=== PATIENT | female | born 1975 | race Caucasian/White ===

== ENCOUNTER 2020-03-20 15:09 | Emergency (ER) | payer OTHER ==
[~2020-03-20] VITALS: Ht 165.1 cm; Wt 104.8 kg
[2020-03-20] MEDS ORDERED: PRAZOSIN HCL2 MG PO (20:30)
[2020-03-20] MEDS ORDERED: PERPHENAZINE2 MG PO (20:30)
[2020-03-20] MEDS ORDERED: FLUTICASONE PRO16 GM NAS (20:30)
[2020-03-20] MEDS ORDERED: VENLAFAXINE HC150 MG PO (20:31)
[2020-03-20] MEDS ORDERED: LAMOTRIGINE100 MG PO (20:31)
== END 2020-03-20 15:47 | disposition home or self-care (01) ==
LOC: ED 15:09
DX: M79.671 Pain in right foot (principal)

== ENCOUNTER 2020-03-20 19:44 | Emergency (ER) | payer OTHER ==
[~2020-03-20] VITALS: Ht 165.1 cm; Wt 104.8 kg
--- OUTSIDE RECORDS SUMMARY | 2020-03-20 19:46 | XMS ---
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 Roney has no Care Guidelines for this patient. Peter VISIT COUNT (12 MO.) [facility] NOTE: Visits indicate total known visits. ED/C VISIT TRACKING (12 MO.) 03/20/2020 19:45 [facility]: Emergency COMPLAINT: - CHEST PAIN 03/20/2020 15:09 [facility] [place] TYPE: Emergency COMPLAINT: - R FOOT PAIN INPATIENT VISIT TRACKING (12 MO.) No inpatient visits to display in this time frame [email or web address]
[2020-03-20] MEDS ORDERED: FLUTICASONE PRO16 GM NAS (20:30)
[2020-03-20] MEDS ORDERED: PERPHENAZINE2 MG PO (20:30)
[2020-03-20] MEDS ORDERED: PRAZOSIN HCL2 MG PO (20:30)
[2020-03-20] MEDS ORDERED: VENLAFAXINE HC150 MG PO (20:31)
[2020-03-20] MEDS ORDERED: LAMOTRIGINE100 MG PO (20:31)
--- NOTE | 2020-03-20 21:24 | EKG ---
[facility] [address] [place], [place] [address] Signed Sinus tachycardia Otherwise normal ECG No previous ECGs available Confirmed by RODRI BRITT MD ([id number] on 03/20/2020 9:24:09 PM Electronically Signed By: RODRI BRITT MD 03/20/202123 PATIENT NAME: JULIUS RIDDLE Electrocardiogram DATE OF : 73 PHYSICIAN: RODRI BRITT MD REPORT #: [id number] REPORT IS CONFIDENTIAL AND NOT TO BE RELEASED WITHOUT AUTHORIZATION
== END 2020-03-20 23:35 | disposition home or self-care (01) ==
LOC: ED 19:44
DX: R07.9 Chest pain, unspecified (principal); F17.200 Nicotine dependence, unspecified, uncomplicated; Z88.0 Allergy status to penicillin; Z88.2 Allergy status to sulfonamides; Z79.899 Other long term (current) drug therapy
CPT/HCPCS: 71045; 80053; 83735; 84484; 85025; 85379; 93005; 93010; 96374; 96375; 99285-25; J1885; J2060; J7121

== ENCOUNTER 2020-10-03 12:23 | Emergency (ER) | payer OTHER ==
[~2020-10-03] VITALS: Ht 165.1 cm; Wt 104.8 kg
[~2020-10-03 12:23] MED LIST: FLUTICASONE PRO16 GM NAS; LAMOTRIGINE100 MG PO; PERPHENAZINE2 MG PO; PRAZOSIN HCL2 MG PO; VENLAFAXINE HC150 MG PO
--- OUTSIDE RECORDS SUMMARY | 2020-10-03 13:02 | XMS ---
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 Care History Medical/Surgical 03/22/2020 [facility] CONTACTED PATIENT- PATIENT HAS AN APT WITH PCP BETTY HAIRSTON TODAY 08/05 @ 10:30AM FOR ER FOLLOW UP. Peter VISIT COUNT (12 MO.) 3 [facility] TOTAL 3 NOTE: Visits indicate total known visits. ED/UCC VISIT TRACKING (12 MO.) 10/03/2020 12:24 [facility] [place] TYPE: Emergency COMPLAINT: - COVID ISSUE 03/20/2020 19:45 [facility] [place] TYPE: Emergency COMPLAINT: - CHEST PAIN DIAGNOSES: - Nicotine dependence, unspecified, uncomplicated - Other truck terminal manager (current) drug therapy - Allergy status to sulfonamides - Allergy status to penicillin - Allergy status to sulfonamides - Chest pain, unspecified 03/20/2020 15:09 [facility] [place] TYPE: Emergency COMPLAINT: - R FOOT PAIN DIAGNOSES: - Pain in right foot INPATIENT VISIT TRACKING (12 MO.) No inpatient visits to display in this time frame [id number]
== END 2020-10-03 13:38 | disposition home or self-care (01) ==
LOC: ED 12:23
DX: R06.02 Shortness of breath (principal); J06.9 Acute upper respiratory infection, unspecified; Z20.822 Contact with and (suspected) exposure to COVID-19; F17.200 Nicotine dependence, unspecified, uncomplicated; Z88.0 Allergy status to penicillin; Z88.2 Allergy status to sulfonamides; Z79.899 Other long term (current) drug therapy
CPT/HCPCS: 99284; C9803; U0003

== ENCOUNTER 2021-12-03 08:44 | Emergency (ER) | payer OTHER ==
[~2021-12-03] VITALS: Ht 165.1 cm; Wt 104.8 kg
--- OUTSIDE RECORDS SUMMARY | 2021-12-03 08:46 | XMS ---
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 Roney has no Care Guidelines for this patient. Care History Medical/Surgical 03/22/2020 [facility] CONTACTED PATIENT- PATIENT HAS AN APT WITH PCP BETTY HAIRSTON TODAY 08/05 @ 10:30AM FOR ER FOLLOW UP. Peter VISIT COUNT (12 MO.) 1 [facility]. TOTAL 1 NOTE: Visits indicate total known visits. ED/UCC VISIT TRACKING (12 MO.) 12/03/2021 08:44 [facility] [place] TYPE: Emergency COMPLAINT: - DIFFUCULTY BREATHING INPATIENT VISIT TRACKING (12 MO.) No inpatient visits to display in this time frame [email or web address]
[2021-12-03] MEDS ORDERED: PREDNISONE20 MG PO (12:22)
--- NOTE | 2021-12-04 18:01 | EKG ---
[facility] [address] [place], [place] [address] Signed Normal sinus rhythm Normal ECG When compared with ECG of 20-MAR-2020 19:50, No significant change was found Confirmed by YOGESH POSEY MD ([id number]) on 12/04/2021 6:01:01 PM Electronically Signed By: YOGESH POSEY MD 12/04/211800 PATIENT NAME: JULIUS RIDDLE Electrocardiogram DATE OF : 73 PHYSICIAN: YOGESH POSEY MD REPORT #: [id number] REPORT IS CONFIDENTIAL AND NOT TO BE RELEASED WITHOUT AUTHORIZATION
== END 2021-12-03 12:33 | disposition home or self-care (01) ==
LOC: ED 08:44
DX: U07.1 COVID-19 (principal); F17.200 Nicotine dependence, unspecified, uncomplicated; Z88.0 Allergy status to penicillin; Z88.2 Allergy status to sulfonamides; Z79.899 Other long term (current) drug therapy
CPT/HCPCS: 36415; 71045; 80053; 84703; 85025; 85379; 93005; 93010; 94640; 94664; 99285-25; J7512